=== PATIENT | female | born 1955 ===

== ENCOUNTER 2024-12-03 09:00 | Inpatient (IN) | payer OTHER ==
[~2024-12-03] VITALS: Ht 167.6 cm; Wt 83.9 kg
[2024-12-03] MEDS ORDERED: DILTIAZEM ER360 M1 PO (13:39)
[2024-12-03] MEDS ORDERED: ROSUVASTATIN CAL5 MG PO (13:39)
[2024-12-03] MEDS ORDERED: BENICAR20 MG PO (13:39)
[2024-12-03] MEDS ORDERED: ALLEGRA-D 24 H1 EACH PO (13:40)
[2024-12-03] MEDS ORDERED: PEPCID40 MG PO (13:40)
[2024-12-03] MEDS ORDERED: DULOXETINE HCL60 MG PO (13:40)
[2024-12-07] MEDS ORDERED: DESMOPRESSIN ACETATE 4 MCG/ML AMPUL IV SCH (08:15)
[2024-12-07] MEDS ORDERED: CEFTRIAXONE SODIUM 2,000 MG VIAL ONE (09:34)
[2024-12-07] MEDS ORDERED: METRONIDAZOLE/SODIUM CHLORIDE 500 MG/100 ML PIGGYBACK IV ONE ×2 (09:34→19:26)
[2024-12-07] MEDS ORDERED: BUPIVACAINE HCL/MPF 0.5% 30ML VIAL ONE (11:41)
[2024-12-07] MEDS ORDERED: LIDOCAINE HCL 1%/EPINEPHRINE 20ML VIAL IJ ONE (11:42)
[2024-12-07] MEDS ORDERED: CHLORHEXIDINE GLUCONATE 120 ML BOTTLE TOP ONE (11:42)
[2024-12-07] MEDS ORDERED: SUGAMMADEX SODIUM 200 MG/2 ML VIAL IV ONE (13:15)
[2024-12-07] MEDS ORDERED: OxyCODONE HCL 5 MG TABLET (ROXICODONE) PO PRN (13:45)
[2024-12-07] MEDS ORDERED: ONDANSETRON HCL 2 MG/ML VIAL IV PRN (13:45)
[2024-12-07] MEDS ORDERED: RINGERS SOLUTION,LACTATED 1,000 ML IV SCH (13:45)
[2024-12-07] MEDS ORDERED: MORPHINE SULFATE 4 MG/ML CARTRIDGE IV PRN (13:45)
[2024-12-07] MEDS ORDERED: MORPHINE SULFATE 4 MG/ML VIAL IV ONE ×2 (14:40→15:45)
[2024-12-07] MEDS ORDERED: HYOSCYAMINE SULFATE 0.125 MG TAB.SUBL SL SCH (17:00)
[2024-12-07] MEDS ORDERED: METRONIDAZOLE/SODIUM CHLORIDE 500 MG/100 ML PIGGYBACK IV SCH (17:00)
[2024-12-07] MEDS ORDERED: GABAPENTIN 300 MG CAPSULE PO SCH (17:00)
[2024-12-07] MEDS ORDERED: ENALAPRILAT DIHYDRATE 1.25 MG/ML VIAL IV PRN (17:45)
[2024-12-07] MEDS ORDERED: ACETAMINOPHEN 500 MG GEL..CAP PO SCH (18:00)
[2024-12-07 20:24] LABS: BASO % 0.1 % (0.1-1.2); HEMATOCRIT 40.4 % (34.1-44.9); HEMOGLOBIN 13.3 g/dL (11.2-15.7); LYMPH # 0.62 (1.18-3.74); MEAN CORPUSCULAR HEMOGLOBIN 30.3 pg (25.6-32.2); MONO # 0.81 (0.24-0.82); MONO % 6.5 % (4.7-12.5); NEUT # 10.95 (1.56-6.13); NEUT % 88.2 % (34.0-71.1); PLATELET COUNT 209 K/uL (163-369); RED BLOOD COUNT 4.39 M/uL (3.93-5.22); RED CELL DISTRIBUTION WIDTH 14.2 % (11.6-14.4)
[2024-12-07] MEDS ORDERED: TAMSULOSIN HCL 0.4 MG CAP PO SCH (21:00)
[2024-12-07] MEDS ORDERED: FAMOTIDINE/PF 20 MG/2 ML VIAL IV PUSH SCH (21:00)
[2024-12-07] MEDS ORDERED: CIPROFLOXACIN IN 5 % DEXTROSE 400 MG/200 ML PIGGYBAG IV SCH (21:00)
[2024-12-07] MEDS ORDERED: DILTIAZEM HCL 180 MG CAP.SR.24H PO SCH (21:00)
[2024-12-07] MEDS ORDERED: Duloxetine HCl 60 MG CAPSULE.DR PO SCH (21:00)
[2024-12-07 21:41] VITALS: O2SAT 96
[2024-12-08] VITALS (9 sets, daily range): BP systolic 117–134; BP diastolic 68–82; O2SAT 90–98
[2024-12-08 08:00] LABS: ALBUMIN 3.2 gm/dL (3.4-5.0); CALCIUM 8.7 mg/dL (8.5-10.1); CREATININE SERUM 0.49 mg/dL (0.55-1.02); GFR 124.85; MAGNESIUM 1.7 mg/dL (1.8-2.4); PHOSPHOROUS 3.4 mg/dL (2.5-4.9); POTASSIUM 4.01 mEq/L (3.5-5.1)
[2024-12-08 08:06] LABS: BASO % 0.3 % (0.1-1.2); EOS # 0.02 (0.04-0.54); EOS % 0.2 % (0.7-7.0); HEMATOCRIT 40.7 % (34.1-44.9); HEMOGLOBIN 13.8 g/dL (11.2-15.7); LYMPH # 0.73 (1.18-3.74); LYMPH % 6.7 % (19.3-53.1); MONO # 0.92 (0.24-0.82); MONO % 8.4 % (4.7-12.5); NEUT # 9.25 (1.56-6.13); NEUT % 84.2 % (34.0-71.1); PLATELET COUNT 224 K/uL (163-369); RED BLOOD COUNT 4.45 M/uL (3.93-5.22); RED CELL DISTRIBUTION WIDTH 14.1 % (11.6-14.4)
[2024-12-08] MEDS ORDERED: LACTOBACILLUS ACIDOPHILUS 1 CAP CAP PO SCH (09:00)
[2024-12-08] MEDS ORDERED: DESMOPRESSIN ACETATE 40 MCG/10 ML ML IV SCH (12:00)
[2024-12-08] MEDS ORDERED: GABAPENTIN 300 MG CAPSULE PO PRN (16:13)
[2024-12-08] MEDS ORDERED: ROSUVASTATIN CALCIUM 10 MG TABLET PO SCH (17:00)
[2024-12-08] MEDS ORDERED: ENOXAPARIN SODIUM 40 MG/0.4 ML SYRINGE SUBCUTANEO SCH (17:00)
[2024-12-09] VITALS (8 sets, daily range): BP systolic 105–120; BP diastolic 57–80; O2SAT 90–99
[2024-12-09 07:23] LABS: CALCIUM 8.5 mg/dL (8.5-10.1); CREATININE SERUM 0.54 mg/dL (0.55-1.02); GFR 111.61; MAGNESIUM 1.7 mg/dL (1.8-2.4); PHOSPHOROUS 2.4 mg/dL (2.5-4.9); POTASSIUM 3.62 mEq/L (3.5-5.1)
[2024-12-09 08:17] LABS: BASO % 0.4 % (0.1-1.2); EOS # 0.17 (0.04-0.54); EOS % 1.7 % (0.7-7.0); HEMATOCRIT 39.8 % (34.1-44.9); HEMOGLOBIN 13.4 g/dL (11.2-15.7); LYMPH # 0.79 (1.18-3.74); LYMPH % 7.8 % (19.3-53.1); MEAN CORPUSCULAR HEMOGLOBIN 30.5 pg (25.6-32.2); MONO # 0.85 (0.24-0.82); MONO % 8.4 % (4.7-12.5); NEUT # 8.23 (1.56-6.13); NEUT % 81.5 % (34.0-71.1); PLATELET COUNT 223 K/uL (163-369); RED BLOOD COUNT 4.39 M/uL (3.93-5.22); RED CELL DISTRIBUTION WIDTH 13.8 % (11.6-14.4)
[2024-12-09] MEDS ORDERED: ENOXAPARIN SODIUM 40 MG/0.4 ML SYRINGE SUBCUTANEO SCH (09:00)
[2024-12-10 00:32] VITALS: BP 123/75; O2SAT 98
[2024-12-10 01:51] VITALS: O2SAT 98
[2024-12-10 05:48] VITALS: O2SAT 98
[2024-12-10 06:19] LABS: BASO % 0.4 % (0.1-1.2); EOS # 0.25 (0.04-0.54); EOS % 3.4 % (0.7-7.0); HEMATOCRIT 37.5 % (34.1-44.9); HEMOGLOBIN 12.9 g/dL (11.2-15.7); LYMPH # 0.83 (1.18-3.74); LYMPH % 11.3 % (19.3-53.1); MEAN CORPUSCULAR HEMOGLOBIN 31.5 pg (25.6-32.2); MONO # 0.61 (0.24-0.82); MONO % 8.3 % (4.7-12.5); NEUT # 5.63 (1.56-6.13); NEUT % 76.3 % (34.0-71.1); PLATELET COUNT 202 K/uL (163-369); RED CELL DISTRIBUTION WIDTH 14.1 % (11.6-14.4)
[2024-12-10 08:59] VITALS: BP 114/71; O2SAT 96
[2024-12-10] MEDS ORDERED: INTESTINEX680 M1 PO (17:39)
[2024-12-10] MEDS ORDERED: HYOSCYAMINE0.125 M1 SL (17:39)
== END 2024-12-10 17:42 | disposition home or self-care (01) | DRG 330 ==
LOC: O/R 12-07 06:24 → SURH 12-07 09:00
PROVIDERS: Internal Medicine; Internal Medicine Geriatric Medicine; ADMIT Surgery; ATTEND Surgery
PROC: 0DBP4ZZ Excision of Rectum, Percutaneous Endoscopic Approach (ICD-10-PCS; 2024-12-07)
PROC: 0DNW4ZZ Release Peritoneum, Percutaneous Endoscopic Approach (ICD-10-PCS; 2024-12-07)
PROC: 0WQF4ZZ Repair Abdominal Wall, Percutaneous Endoscopic Approach (ICD-10-PCS; 2024-12-07)
PROC: 0DJD8ZZ Inspection of Lower Intestinal Tract, Via Natural or Artificial Opening Endoscopic (ICD-10-PCS; 2024-12-07)
PROC: 4A12X4Z Monitoring of Cardiac Electrical Activity, External Approach (ICD-10-PCS; 2024-12-07)
PROC: 0DBE4ZZ Excision of Large Intestine, Percutaneous Endoscopic Approach (ICD-10-PCS; principal; 2024-12-07 11:30)
DX: K57.20 Diverticulitis of large intestine with perforation and abscess without bleeding (principal); F33.9 Major depressive disorder, recurrent, unspecified; K62.5 Hemorrhage of anus and rectum; R33.9 Retention of urine, unspecified; K66.0 Peritoneal adhesions (postprocedural) (postinfection); K43.5 Parastomal hernia without obstruction or gangrene; I10 Essential (primary) hypertension; Z93.3 Colostomy status; E78.5 Hyperlipidemia, unspecified; G47.30 Sleep apnea, unspecified